=== PATIENT | female | born 2005 | race Caucasian/White ===

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

== ENCOUNTER 2023-05-11 09:50 | Emergency (ER) | payer SELFPAY ==
--- NOTE | ~2023-05-11 | XR_ITS ---
EXAMINATION: XR chest 2V DATE: 05/11/2023 10:56 INDICATION: Cough. Sore throat. TECHNIQUE: Frontal and lateral views of the chest were obtained. COMPARISON: None. FINDINGS: There is no pneumonia, pleural effusion, or pneumothorax. The heart size is normal. IMPRESSION: 1. No acute cardiopulmonary disease. Reviewed, dictated and finalized at location A. PER OPERATOR
[2023-05-11 09:59] VITALS: BP 140/78; PULSE 80; RESP 16; TEMP 36.6; O2SAT 100
[2023-05-11 11:19] LABS: Strep Group A RT-PCR NOT DETECTED (Negative)
[2023-05-11 11:31] LABS: Influenza A QL RT-PCR Negative (Negative); Influenza B QL RT-PCR Negative (Negative); RSV RNA, RT-PCR Positive (Negative); SARS-CoV-2 RNA PCR Negative (Negative)
--- NOTE | 2023-05-11 11:43 | ED.GENADULT ---
HPI - General Adult General Chief complaint: Upper Respiratory Infection Stated complaint: SORE THROAT, URI Time Seen by Provider: 05/11/23 10:06 History of Present Illness HPI narrative: Patient is a 17-year-old female who presents ER with sore throat and sinus congestion. Ongoing for 3 days. Associated with fever. Has been exposed to sick individuals at school. No chest pain or chest pressure. She does have persistent cough. No alleviating factors. Related Data Allergies Allergy/AdvReac Type Severity Reaction Status Date / Time banana Allergy Swelling Verified 05/11/23 10:00 of Lip/Tongue/Throat egg Allergy Swelling Verified 05/11/23 10:00 of Lip/Tongue/Throat milk Allergy Swelling Verified 05/11/23 10:00 of Lip/Tongue/Throat Review of Systems Constitutional: Constitutional: Reports chills, Reports fatigue and Reports fever(s) ENT: Reports nasal congestion and Reports sore throat Cardiovascular: Cardiovascular: Reports no additional cardiovascular complaints Respiratory: Respiratory: Reports cough, Denies dyspnea and Denies wheezing PMFSH Past Medical History Medical History (Updated 05/11/23 @ 17:53 by Gio Garcia MD) Healthy female adult Surgical History Surgical History (Updated 05/11/23 @ 17:53 by Gio Garcia MD) No history of previous surgery Social History Social History Gender identity (if verbalized by the patient): Female Exam Narrative: GENERAL: Well-appearing, well-nourished, and in no acute distress. HEAD: Normocephalic, atraumatic. ENT: Mucous membranes moist. Mild pharyngeal erythema without tonsillar hypertrophy or exudate. NECK: Supple. CHEST: Clear to auscultation. No respiratory distress. HEART: Regular rate and rhythm. Normal peripheral pulses. EXTREMITIES: Normal range of motion. No edema. NEURO: Alert and oriented x3. PSYCH: Normal mood and affect. Course Course Emergency Course: Patient diagnosed with RSV. Educated on treatment plan. Discharge home. Vital Signs Vital signs: Vital Signs Temperature 98 F 05/11/23 09:59 Pulse Rate 80 05/11/23 09:59 Respiratory Rate 16 05/11/23 09:59 Blood Pressure 140/78 05/11/23 09:59 Pulse Oximetry 100 05/11/23 09:59 Temperature 98 F 05/11/23 09:59 Pulse Rate 80 05/11/23 09:59 Respiratory Rate 16 05/11/23 09:59 Blood Pressure 140/78 05/11/23 09:59 Pulse Oximetry 100 05/11/23 09:59 Medical Decision Making Vital Signs Vital Signs: Vital Signs Temperature 98 F 05/11/23 09:59 Pulse Rate 80 05/11/23 09:59 Respiratory Rate 16 05/11/23 09:59 Blood Pressure 140/78 05/11/23 09:59 Pulse Oximetry 100 05/11/23 09:59 Temperature 98 F 05/11/23 09:59 Pulse Rate 80 05/11/23 09:59 Respiratory Rate 16 05/11/23 09:59 Blood Pressure 140/78 05/11/23 09:59 Pulse Oximetry 100 05/11/23 09:59 Lab Data Labs: Lab Results 05/11/23 05/11/23 Range/Units 10:50 10:51 Influenza A (RT-PCR) Negative (Negative) Influenza B (RT-PCR) Negative (Negative) RSV (RT-PCR) Positive A (Negative) SARS-CoV-2 RNA (RT-PCR) Negative (Negative) Group A Strep (PCR) Not detected (Negative) Discharge Plan Discharge Clinical Impression: Respiratory syncytial virus (RSV) Patient Disposition: Home, Self-Care Condition: Stable Instructions: Viral Syndrome (ED) Additional Instructions: Return the ER if you have fever over 100.4 ?F, you cannot keep down food or water, you lose consciousness, you have additional concerns. Prescriptions: No Action azithromycin 500 mg tablet 500 mg PO DAILY 5 Days Qty: 5 0RF Follow-up/Referrals: Dick Goodrich MD [Physician] - 1 Week PHYSICIAN,MECHANICAL LABORATORY TECHNICIAN [Primary Care Provider] -
== END 2023-05-11 11:50 | disposition home or self-care (01) ==
PROVIDERS: Emergency Provider Emergency Medicine
DX: J22 Unspecified acute lower respiratory infection (principal); B97.4 Respiratory syncytial virus as the cause of diseases classified elsewhere; Z20.822 Contact with and (suspected) exposure to COVID-19
CPT/HCPCS: 71046; 87637; 87651; 99283

== ENCOUNTER 2024-04-28 10:20 | Emergency (ER) | payer OTHER, SELFPAY ==
--- NOTE | ~2024-04-28 | XR_ITS ---
EXAMINATION: XR chest 2V DATE: 04/28/2024 14:17 INDICATION: Chest pain. TECHNIQUE: Frontal and lateral views of the chest were obtained. COMPARISON: Chest 2 views 05/11/2023 FINDINGS: There is no pneumonia, pleural effusion, or pneumothorax. The heart size is normal. IMPRESSION: 1. No acute cardiopulmonary disease. Reviewed, dictated and finalized at location B.
--- NOTE | 2024-04-28 10:24 | ECG_ITS ---
Test Date: 2024-04-28 10:54:07 Measurements Intervals [place] Rate: 71 P: 55 ID: 130 QRS: 77 QRSD: 93 T: 56 QT: 373 QTc: 406 Interpretive Statements SINUS RHYTHM WITH SINUS ARRHYTHMIA No previous ECG available for comparison Electronically Signed On 04-28-2024 11:56:50 CDT by Michael Akers M.D.
[2024-04-28 10:54] VITALS: BP 122/70; PULSE 92; RESP 16; TEMP 36.8; O2SAT 100
--- NOTE | 2024-04-28 12:21 | ED.CHESTPAIN ---
HPI - Chest Pain General Chief Complaint: Chest Pain <Jessi Dean PA-C - Last Filed: 04/29/24 11:09> Stated Complaint: INT CHEST PAIN X2D <Jessi Dean PA-C - Last Filed: 04/29/24 11:09> Time Seen by Provider: 04/28/24 12:21 <Jessi Dean PA-C - Last Filed: 04/29/24 11:09> Focused HPI: This is a 18 year old female that presents to the ER for chest pain. Worse with breathing and movement. She has not taken anything for pain. Pain started yesterday. No known injuries. Reports some shortness of breath. No recent travel or surgery. No exogenous estrogen use. Denies fever, cough. GENERAL: Well-appearing, well-nourished, and in no acute distress. HEAD: Normocephalic, atraumatic. CHEST: Clear to auscultation. ?No respiratory distress. HEART: Regular rate and rhythm.? NEURO: ?Alert and oriented x3. Patient screened in triage and initial orders placed.? ?Additional care and disposition to be based upon?diagnostic testing and treatment. <Jessi Dean PA-C - Last Filed: 04/29/24 11:09> History of Present Illness HPI narrative: I agree with the above HPI <Stanley Bennett MD - Last Filed: 04/28/24 18:39> Related Data Allergies/Adverse Reactions: Allergies Allergy/AdvReac Type Severity Reaction Status Date / Time banana Allergy Swelling Verified 05/11/23 10:00 of Lip/Tongue/Throat egg Allergy Swelling Verified 05/11/23 10:00 of Lip/Tongue/Throat milk Allergy Swelling Verified 05/11/23 10:00 of Lip/Tongue/Throat <Jessi Dean PA-C - Last Filed: 04/29/24 11:09> Review of Systems Review of Systems: All systems reviewed & are unremarkable except as noted in HPI and below <Stanley Bennett MD - Last Filed: 04/28/24 18:39> PMFSH Past Medical History Medical History: Medical History (Updated 04/29/24 @ 11:09 by Jessi Dean PA-C) Healthy female adult <Jessi Dean PA-C - Last Filed: 04/29/24 11:09> Surgical History Surgical History: Surgical History (Updated 05/11/23 @ 17:53 by Gio Garcia MD) No history of previous surgery <Jessi Dean PA-C - Last Filed: 04/29/24 11:09> Social History Social History: Social History Gender identity (if verbalized by the patient): Female <Jessi Dean PA-C - Last Filed: 04/29/24 11:09> Exam Narrative: APPEARANCE: Well appearing, no pain, no distress, well-nourished. HEAD: normocephalic, atraumatic. EYES: PERRLA/EOMI, conjunctivae clear. NOSE: Normal no drainage EARS:TMS clear with good light reflex. THROAT: Pharynx clear, no exudate. NECK: Supple. No adenopathy, no masses. RESPIRATORY: Airway patent, respirations nonlabored. Clear to auscultation bilaterally, no rales, rhonchi, wheezing. CARDIOVASCULAR: Regular rate and rhythm without murmurs rubs or gallops. ABDOMINAL: Soft, nontender, nondistended, normal bowel sounds MUSCULOSKELETAL: Reproducible chest wall tenderness to palpation NEURO: Alert. Cranial nerves II through XII intact. Good gait. Good coordination SKIN: Warm, dry. Normal Color PSYCHIATRIC: Normal affect/mood. <Stanley Bennett MD - Last Filed: 04/28/24 18:39> Course Vital Signs Vital signs: Vital Signs Temperature 98.3 F 04/28/24 10:54 Pulse Rate 92 04/28/24 10:54 Respiratory Rate 16 04/28/24 10:54 Blood Pressure 122/70 04/28/24 10:54 Pulse Oximetry 100 04/28/24 10:54 Temperature 97.9 F 04/28/24 14:28 Pulse Rate 88 04/28/24 16:07 Respiratory Rate 18 04/28/24 16:07 Blood Pressure 130/86 04/28/24 16:07 Pulse Oximetry 99 04/28/24 16:07 <Jessi Dean PA-C - Last Filed: 04/29/24 11:09> Vital Signs Temperature 98.3 F 04/28/24 10:54 Pulse Rate 92 04/28/24 10:54 Respiratory Rate 16 04/28/24 10:54 Blood Pressure 122/70 04/28/24 10:54 Pulse Oximetry 100 04/28/24 10:54 Temperature 97.9 F 04/28/24 14:28 Pulse Rate 88 04/28/24 16:07 Respiratory Rate 18 04/28/24 16:07 Blood Pressure 130/86 04/28/24 16:07 Pulse Oximetry 99 04/28/24 16:07 <Stanley Bennett MD - Last Filed: 04/28/24 18:39> MDM - Chest Pain MDM Narrative Medical decision making narrative: 18-year-old female presented emergency department for evaluation for a pleuritic chest pain. Patient is afebrile with no leukocytosis and hemoglobin of 12.7. Patient has an INR of 1.1. Patient's D-dimer negative. Patient has no acute abnormalities on her CMP patient's troponin was negative. Patient's urine preg was negative. Patient's chest x-ray was negative. Patient was updated results of the workup. Patient reports that the Toradol did help to resolve her chest pain. Suspect pleurisy/costochondritis the etiology for symptoms. Low concern for pulmonary embolism or ACS. Patient was encouraged close follow-up with primary care physician. <Stanley Bennett MD - Last Filed: 04/28/24 18:39> Differential Diagnosis Differential diagnosis: Likely fracture of rib, pneumothorax, unstable angina pectoris, atypical chest pain, costochondritis, chest pain and biliary colic <Stanley Bennett MD - Last Filed: 04/28/24 18:39> Lab Data Attestation: I reviewed the patient's lab results. <Stanley Bennett MD - Last Filed: 04/28/24 18:39> Result diagrams: 04/28/24 12:35 04/28/24 12:35 <Jessi Dean PA-C - Last Filed: 04/29/24 11:09> Labs: Lab Results 04/28/24 04/28/24 Range/Units 12:35 15:29 WBC 6.4 (4.5-10.0) K/mm3 RBC 4.14 L (4.2-5.4) M/mm3 Hgb 12.7 (12.0-15.0) g/dL Hct 37.3 (37.0-47.0) % MCV 90.1 (80-100) fl MCH 30.7 (26-34) pg MCHC 34.0 (32-36) g/dl RDW 11.9 (11.5-14.5) % Plt Count 230 (150-375) k/mm3 MPV 10.7 H (7.4-10.4) fl Immature Gran % (Auto) 0.2 (0-0.5) % Neut % (Auto) 55.7 (45.5-73.1) % Lymph % (Auto) 37.0 (18.3-44.2) % [place] % (Auto) 6.1 (2.6-8.5) % Eos % (Auto) 0.5 (0-4.4) % Baso % (Auto) 0.5 (0.2-1.2) % Lymph # (Auto) 2.37 (0.9-3.2) K/mm3 [place] # (Auto) 0.4 (0.1-0.6) K/mm3 Eos # (Auto) 0.0 (0-0.3) K/mm3 Baso # (Auto) 0.0 (0.0-0.1) K/mm3 Abs Immat Gran (auto) 0.01 (0.00-0.031) K/mm3 Absolute Neuts (auto) 3.6 (1.3-6.7) K/mm3 Absolute Nucleated RBC 0.000 (0.0-0.012) K/mm3 Nucleated RBC % 0.0 (0.0-0.2) % PT 14.5 (11.1-14.7) Seconds INR 1.1 APTT 29.4 (22.3-36.8) Seconds D-Dimer < 0.27 (<0.48) ug/mL Sodium 139 (137-145) mmol/L Potassium 4.2 (3.4-5.0) mmol/L Chloride 104 (98-107) mmol/L Carbon Dioxide 27 (22-30) mmol/L Anion Gap 8 (4-12) mmol/L BUN 8 (7-17) mg/dL Creatinine 0.70 (0.7-1.0) mg/dL Estim Creat Clear Calc 103 ml/min Estimated GFR > 60 (59 - ) Glucose 94 (65-110) mg/dL Calcium 9.3 (8.4-10.2) mg/dL Total Bilirubin 0.8 (0.2-1.3) mg/dL AST 24 (14-36) U/L ALT 18 (6-35) U/L Alkaline Phosphatase 60 (38-126) U/L Troponin I < 0.012 (0.000-0.034) ng/mL Total Protein 8.0 (6.3-8.2) g/dL Albumin 4.5 (3.5-5.1) g/dL Lipase 45 (23-300) U/L POC Urine HCG, Qual Negative (Negative) <Jessi Dean PA-C - Last Filed: 04/29/24 11:09> Lab Results 04/28/24 04/28/24 Range/Units 12:35 15:29 WBC 6.4 (4.5-10.0) K/mm3 RBC 4.14 L (4.2-5.4) M/mm3 Hgb 12.7 (12.0-15.0) g/dL Hct 37.3 (37.0-47.0) % MCV 90.1 (80-100) fl MCH 30.7 (26-34) pg MCHC 34.0 (32-36) g/dl RDW 11.9 (11.5-14.5) % Plt Count 230 (150-375) k/mm3 MPV 10.7 H (7.4-10.4) fl Immature Gran % (Auto) 0.2 (0-0.5) % Neut % (Auto) 55.7 (45.5-73.1) % Lymph % (Auto) 37.0 (18.3-44.2) % [place] % (Auto) 6.1 (2.6-8.5) % Eos % (Auto) 0.5 (0-4.4) % Baso % (Auto) 0.5 (0.2-1.2) % Lymph # (Auto) 2.37 (0.9-3.2) K/mm3 [place] # (Auto) 0.4 (0.1-0.6) K/mm3 Eos # (Auto) 0.0 (0-0.3) K/mm3 Baso # (Auto) 0.0 (0.0-0.1) K/mm3 Abs Immat Gran (auto) 0.01 (0.00-0.031) K/mm3 Absolute Neuts (auto) 3.6 (1.3-6.7) K/mm3 Absolute Nucleated RBC 0.000 (0.0-0.012) K/mm3 Nucleated RBC % 0.0 (0.0-0.2) % PT 14.5 (11.1-14.7) Seconds INR 1.1 APTT 29.4 (22.3-36.8) Seconds D-Dimer < 0.27 (<0.48) ug/mL Sodium 139 (137-145) mmol/L Potassium 4.2 (3.4-5.0) mmol/L Chloride 104 (98-107) mmol/L Carbon Dioxide 27 (22-30) mmol/L Anion Gap 8 (4-12) mmol/L BUN 8 (7-17) mg/dL Creatinine 0.70 (0.7-1.0) mg/dL Estim Creat Clear Calc 103 ml/min Estimated GFR > 60 (59 - ) Glucose 94 (65-110) mg/dL Calcium 9.3 (8.4-10.2) mg/dL Total Bilirubin 0.8 (0.2-1.3) mg/dL AST 24 (14-36) U/L ALT 18 (6-35) U/L Alkaline Phosphatase 60 (38-126) U/L Troponin I < 0.012 (0.000-0.034) ng/mL Total Protein 8.0 (6.3-8.2) g/dL Albumin 4.5 (3.5-5.1) g/dL Lipase 45 (23-300) U/L POC Urine HCG, Qual Negative (Negative) <Stanley Bennett MD - Last Filed: 04/28/24 18:39> Imaging Data Radiologist's impression: Impressions Chest X-Ray 04/28/24 14:17 IMPRESSION: 1. No acute cardiopulmonary disease. <Stanley Bennett MD - Last Filed: 04/28/24 18:39> ECG Data EKG #1: EKG Interpretation: normal rate, sinus rhythm, no ectopy, non-specific ST changes, normal QRS, normal QT and NL axis <Stanley Bennett MD - Last Filed: 04/28/24 18:39> Critical Care Time Critical Care Time Critical Care Time: No <Jessi Dean PA-C - Last Filed: 04/29/24 11:09> Discharge Plan Discharge Clinical Impression: Chest pain <Jessi Dean PA-C - Last Filed: 04/29/24 11:09> Patient Disposition: Home, Self-Care <Jessi Dean PA-C - Last Filed: 04/29/24 11:09> Condition: Stable <Jessi Dean PA-C - Last Filed: 04/29/24 11:09> Instructions: Antibiotic Form, Chest Pain (ED), Pleurisy (ED) <Jessi Dean PA-C - Last Filed: 04/29/24 11:09> Additional Instructions: Scheduled ibuprofen for pain control. Have close follow-up with your primary care physician. If you have any worsening symptoms then please call or return to the emergency department. <Jessi Dean PA-C - Last Filed: 04/29/24 11:09> Prescriptions: No Action azithromycin 500 mg tablet 500 mg PO DAILY 5 Days Qty: 5 0RF <Jessi Dean PA-C - Last Filed: 04/29/24 11:09> Follow-up/Referrals: PHYSICIAN,TEENAGE BABYSITTER [Non-Staff] - <Jessi Dean PA-C - Last Filed: 04/29/24 11:09> Quality HEART score for chest pain patients History: slightly suspicious <Stanley Bennett MD - Last Filed: 04/28/24 18:39> ECG: normal <Stanley Bennett MD - Last Filed: 04/28/24 18:39> Age: < or = to 45 years <Stanley Bennett MD - Last Filed: 04/28/24 18:39> Risk factors: no risk factors known <Stanley Bennett MD - Last Filed: 04/28/24 18:39> Troponin: < or = to 1x normal limit <Stanley Bennett MD - Last Filed: 04/28/24 18:39> Heart score: 0 <Jessi Dean PA-C - Last Filed: 04/29/24 11:09> 0 <Stanley Bennett MD - Last Filed: 04/28/24 18:39>
[2024-04-28 12:52] LABS: Basophils Percent Auto 0.5 % (0.2-1.2); Eosinophils Percent Auto 0.5 % (0-4.4); Hematocrit 37.3 % (37.0-47.0); Hemoglobin 12.7 g/dL (12.0-15.0); Immature Granulocyte Absolute 0.01 K/mm3 (0.00-0.031); Immature Granulocyte Percent A 0.2 % (0-0.5); Lymphocytes Absolute Auto 2.37 K/mm3 (0.9-3.2); Mean Corpuscular Hemoglobin 30.7 pg (26-34); Mean Corpuscular Volume 90.1 fl (80-100); Mean Platelet Volume 10.7 fl (7.4-10.4); Monocytes Absolute Auto 0.4 K/mm3 (0.1-0.6); Monocytes Percent Auto 6.1 % (2.6-8.5); Neutrophils Absolute Auto 3.6 K/mm3 (1.3-6.7); Neutrophils Percent Auto 55.7 % (45.5-73.1); Platelet Count Result 230 k/mm3 (150-375); Red Blood Count 4.14 M/mm3 (4.2-5.4); Red Cell Distribution Width 11.9 % (11.5-14.5); White Blood Count 6.4 K/mm3 (4.5-10.0)
[2024-04-28 13:03] LABS: Alanine Aminotransferase 18 U/L (6-35); Albumin Level 4.5 g/dL (3.5-5.1); Alkaline Phosphatase 60 U/L (38-126); Anion Gap 8 mmol/L (4-12); Aspartate Amino Transferase 24 U/L (14-36); Bilirubin,Total 0.8 mg/dL (0.2-1.3); Blood Urea Nitrogen 8 mg/dL (7-17); Calcium 9.3 mg/dL (8.4-10.2); Carbon Dioxide 27 mmol/L (22-30); Chloride 104 mmol/L (98-107); Estimated CRCL calculation 103 ml/min; Estimated Glomerular Filt Rate > 60; Glucose 94 mg/dL (65-110); Lipase 45 U/L (23-300); Potassium 4.2 mmol/L (3.4-5.0); Sodium 139 mmol/L (137-145)
[2024-04-28 13:07] LABS: Partial Thromboplastin Time 29.4 Seconds (22.3-36.8)
[2024-04-28 13:09] LABS: INR 1.1; Prothrombin Time 14.5 Seconds (11.1-14.7)
[2024-04-28 13:14] LABS: Troponin I < 0.012 ng/mL (0.000-0.034)
[2024-04-28 14:28] VITALS: BP 124/70; PULSE 76; RESP 15; TEMP 36.6; O2SAT 99
[2024-04-28] MEDS: KETOROLAC 30 MG/ML VIAL (*BKC) IM (15:29)
[2024-04-28 15:31] LABS: BEDSIDEPREGUCG Negative (Negative)
[2024-04-28 16:07] VITALS: BP 130/86; PULSE 88; RESP 18; O2SAT 99
[2024-04-28 16:19] LABS: D Dimer < 0.27 ug/mL (<0.48)
== END 2024-04-28 16:50 | disposition home or self-care (01) ==
PROVIDERS: Physician Assistant; Emergency Provider Emergency Medicine
DX: R07.9 Chest pain, unspecified (principal)
CPT/HCPCS: 36415; 71046; 80053; 81025; 83690; 84484; 85025; 85380; 85610; 85730; 93005; 96372; 99284; J1885

== ENCOUNTER 2024-12-16 15:58 | Emergency (ER) | payer SELFPAY ==
[2024-12-16 16:15] VITALS: BP 105/83; PULSE 98; RESP 20; TEMP 36.4; O2SAT 98
--- NOTE | 2024-12-16 17:33 | ED_ITS ---
HPI - Dental/Oral General Chief complaint: Dental/Oral Stated complaint: jaw swelling, tooth Time Seen by Provider: 12/16/24 16:23 Source: patient Mode of arrival: ambulatory Limitations: no limitations History of Present Illness HPI Narrative: This is a 19 year old female that presents to the ER for toothache. Ongoing over the last week. Denies fevers. MD Complaint: tooth pain Location: Tooth # (1) Related Data Allergies Allergy/AdvReac Type Severity Reaction Status Date / Time banana Allergy Swelling Verified 12/16/24 16:17 of Lip/Tongue/Throat egg Allergy Swelling Verified 12/16/24 16:17 of Lip/Tongue/Throat milk Allergy Swelling Verified 12/16/24 16:17 of Lip/Tongue/Throat Review of Systems Review of Systems: CONSTITUTIONAL: Denies fever, ENT: Reports dentalgia All systems reviewed & are unremarkable except as noted in HPI and below PMFSH Past Medical History Medical History (Updated 12/16/24 @ 17:34 by Jessi Dean PA-C) Healthy female adult Surgical History Surgical History (Updated 05/11/23 @ 17:53 by Gio Garcia MD) No history of previous surgery Social History Social History Gender identity (if verbalized by the patient): Female Exam Narrative: GENERAL: Well-appearing, well-nourished, and in no acute distress. HEAD: Normocephalic, atraumatic. EYES: EOMI. ENT: Nares clear, no rhinorrhea or epistaxis. Mucous membranes moist. Oropharynx without tonsillar hypertrophy exudate or other lesions. Tooth #1 tender to palpation without surrounding erythema or fluctuance to suggest abscess NECK: Supple. No adenopathy or masses. CHEST: Clear to auscultation. No respiratory distress. No wheezes rales or rhonchi HEART: Regular rate and rhythm. No murmur heard. Normal peripheral pulses. EXTREMITIES: Normal range of motion. No edema. SKIN: Warm, dry, no rash. NEURO: No focal deficits. Alert and oriented x3. PSYCH: Normal mood and affect Course Vital Signs Vital signs: Vital Signs Temperature 97.6 F 12/16/24 16:15 Pulse Rate 98 12/16/24 16:15 Respiratory Rate 20 12/16/24 16:15 Blood Pressure 105/83 12/16/24 16:15 Pulse Oximetry 98 12/16/24 16:15 Oxygen Delivery Room Air 12/16/24 16:15 Temperature 97.6 F 12/16/24 16:15 Pulse Rate 98 12/16/24 16:15 Respiratory Rate 20 12/16/24 16:15 Blood Pressure 105/83 12/16/24 16:15 Pulse Oximetry 98 12/16/24 16:15 Oxygen Delivery Room Air 12/16/24 16:15 MDM - Dental/Oral MDM Narrative Medical decision making narrative: Patient presents the emergency department for toothache. She is afebrile and nontoxic appearing. No evidence for abscess on exam. Will be started on oral antibiotics. Instructed to follow-up with a dentist. She was given warnings to return to the ER Differential Diagnosis Differential diagnosis: Likely dental caries, toothache and dental abscess Critical Care Time Critical Care Time Critical Care Time: No Discharge Plan Discharge Clinical Impression: Toothache Patient Disposition: Home Condition: Stable Instructions: Antibiotic Form, Toothache (ED) Additional Instructions: Return to the Emergency Department if you experience fever >101, increasing swelling and redness of your tooth, or any other symptoms that are concerning to you Take antibiotic as prescribed. Tylenol or Ibuprofen as needed for pain. Follow up with your dentist Patient Language: [place] Prescriptions: New amoxicillin-pot clavulanate 875-125 mg tablet 1 tablet PO Q12H 7 Days Qty: 14 0RF No Action azithromycin 500 mg tablet 500 mg PO DAILY 5 Days Qty: 5 0RF Follow-up/Referrals: UNKNOWN,DOCTOR [Primary Care Provider] -
[2024-12-16] MEDS: KETOROLAC 30 MG/ML VIAL (*BKC) IM (17:46)
[2024-12-16] MEDS: AMOXICILLIN/CLAVULANATE K 875-125 MG TAB 1 TABLET PO (17:46)
[2024-12-16] MEDS: HYDROcodone/acetaminophen (*CRX) 5-325 MG TABLET 1 TAB PO (17:47)
== END 2024-12-16 18:10 | disposition home or self-care (01) ==
PROVIDERS: Emergency Provider Physician Assistant
DX: K08.89 Other specified disorders of teeth and supporting structures (principal)
CPT/HCPCS: 96372; 99283; A9270; J1885

== ENCOUNTER 2024-12-24 01:37 | Emergency (ER) | payer SELFPAY ==
[2024-12-24 01:40] VITALS: BP 129/91; PULSE 64; RESP 18; TEMP 36.4; O2SAT 100
--- NOTE | 2024-12-24 02:05 | ED.DENTAL ---
HPI - Dental/Oral General Chief complaint: Dental/Oral Stated complaint: Right sided mouth/dental pain Time Seen by Provider: 12/24/24 01:46 Source: patient and old records reviewed Mode of arrival: ambulatory Limitations: no limitations History of Present Illness HPI Narrative: Patient is a 19-year-old female who presents the ED with report of dental pain. Patient reports having pain throughout right upper molar, tooth 1, for the past few weeks. Was seen in the ED here last week, prescribed Augmentin. Patient reports pain has continued to worsen. She feels as though the right side of her face is swollen. Denies difficulty breathing or swallowing. Denies fevers. States she is not able to get in to see her dentist until April. Related Data Allergies Allergy/AdvReac Type Severity Reaction Status Date / Time banana Allergy Swelling Verified 12/24/24 01:43 of Lip/Tongue/Throat egg Allergy Swelling Verified 12/24/24 01:43 of Lip/Tongue/Throat milk Allergy Swelling Verified 12/24/24 01:43 of Lip/Tongue/Throat Review of Systems Review of Systems: All systems reviewed & are unremarkable except as noted in HPI. All systems reviewed & are unremarkable except as noted in HPI and below PMFSH Past Medical History Medical History Healthy female adult Surgical History Surgical History No history of previous surgery Social History Social History Gender identity (if verbalized by the patient): Female Exam Narrative: GENERAL: Well appearing, well-nourished, non-toxic, in no acute distress. HEAD: Normocephalic, atraumatic. ENT: Dental jonny to tooth 1. Tenderness along right upper outer gumline. No significant gum erythema or inflammation. No focal fluctuance or abscess. Tolerating secretions. No stridor or trismus. RESPIRATORY: Airway patent, respirations nonlabored. No stridor or distress. CARDIOVASCULAR: Regular rate and rhythm. MUSCULOSKELETAL: Moves all extremities. No gross deformities. SKIN: Warm, dry, normal color. NEURO: A&O X3. Speech clear. PSYCHIATRIC: Appropriate mood and affect. Normal interaction. Course Vital Signs Vital signs: Vital Signs Temperature 97.6 F 12/24/24 01:40 Pulse Rate 64 12/24/24 01:40 Respiratory Rate 18 12/24/24 01:40 Blood Pressure 129/91 H 12/24/24 01:40 Pulse Oximetry 100 12/24/24 01:40 Oxygen Delivery Room Air 12/24/24 01:40 Temperature 97.6 F 12/24/24 01:40 Pulse Rate 64 12/24/24 01:40 Respiratory Rate 18 12/24/24 01:40 Blood Pressure 129/91 H 12/24/24 01:40 Pulse Oximetry 100 12/24/24 01:40 Oxygen Delivery Room Air 12/24/24 01:40 MDM - Dental/Oral MDM Narrative Medical decision making narrative: Patient's pain is consistent with dental caries. There are no focal signs of space-occupying abscess. The patient is controlling secretions well without signs of airway compromise. Patient is felt reasonable for outpatient follow-up with dental evaluation. Will switch antibiotics to clindamycin. Given dose of [place] here. Advised to continue Tylenol/ibuprofen as needed for pain. Discussed return precautions. Discharged in stable condition. Medical Records Attestation: I reviewed the patient's medical records. Discharge Plan Discharge Clinical Impression: Toothache, Dental caries Patient Disposition: Home Condition: Stable Instructions: Antibiotic Form, Toothache (ED) Additional Instructions: Take new antibiotics as prescribed. Utilize mouthwash twice daily as needed. Stay well hydrated. Continue Tylenol/ibuprofen around the clock as needed for pain. Follow-up with dentist for further evaluation. Return to the ED for new or worsening concerns. Patient Language: Ivorian Prescriptions: New clindamycin HCl [Cleocin HCl] 150 mg capsule 300 mg PO TID 7 Days Qty: 42 0RF chlorhexidine gluconate 0.12 % mouthwash 15 ml buccal BID Qty: 118 0RF No Action amoxicillin-pot clavulanate 875-125 mg tablet 1 tablet PO Q12H 7 Days Qty: 14 0RF azithromycin 500 mg tablet 500 mg PO DAILY 5 Days Qty: 5 0RF Follow-up/Referrals: UNKNOWN,DOCTOR [Primary Care Provider] - Time of Disposition: 02:16
[2024-12-24 02:32] VITALS: BP 113/93; PULSE 73; RESP 16; TEMP 36.6; O2SAT 98
[2024-12-24] MEDS: HYDROcodone/acetaminophen (*CRX) 5-325 MG TABLET 1 TAB PO (02:32)
[2024-12-24 02:42] VITALS: BP 113/93; PULSE 65; RESP 18; O2SAT 97
== END 2024-12-24 02:41 | disposition home or self-care (01) ==
PROVIDERS: Emergency Provider Physician Assistant
DX: K02.9 Dental caries, unspecified (principal)
CPT/HCPCS: 99283; A9270

== ENCOUNTER 2025-04-30 10:00 | Emergency (ER) | payer SELFPAY ==
--- NOTE | ~2025-04-30 | US_ITS ---
EXAMINATION: US transvaginal, 04/30/2025 13:25 COMMUNITY EDUCATOR HISTORY: bleeding Comparison: None Technique: Hou-scale and color Doppler images were obtained. Findings: Uterus: Uterus anteverted measuring 6.8 x 3.2 x 3.3 cm x 3.3 x 2 x 2 0.3 cm, no adnexal mass, normal flow. . Right Ovary:Unremarkable. No adnexal mass. Normal flow. Left Ovary: Left ovary 3.2 x 1.9 x 1.4 cm, no adnexal mass, normal flow. Free Fluid: Minimal free fluid. Impression: No acute abnormality. Reviewed, dictated and finalized at location P. UN[facility] EDUCATOR Impression: No acute abnormality.
--- OUTSIDE RECORDS SUMMARY | 2025-04-30 10:04 | XMS_ITS | Clinical Summary ---
Author Organization [facility] Address [address] [address] Phone Care Team Providers Care Sheriff Name Role Phone Juan M Paz MD Primary Care Provider [phone] Allergies No known active allergies Medications No known medications Active Problems Problem Noted Date Diagnosed Date Annual physical exam 12/24/2022 Immunizations Immunization Administration Dates Next Due DTaP 5 Pertussis 09/20/2008,12/24/2005, 4,03/28/2004 HPV9 03/15/2019 Hep A, Pediatric 03/15/2019 Hep B, Adolescent or Pediatric 11/04/2004,2003,03/28/2004 IPV 09/20/2008,11/04/2004,06/18/2004 ,03/28/2004 Influenza, Unspecified 03/29/2022 MMR 09/20/2008,03/06/2005 Meningococcal MCV4P (Menactra) 04/15/2021,2018 Tdap 03/15/2019 Varicella 09/20/2008,03/06/2005 Family History Medical History Relation Name Comments No Known Problems Brother 1 No Known Problems Brother 2 No Known Problems Brother 3 No Known Problems Brother 4 No Known Problems Father Arthritis Mother No Known Problems Sister 1 No Known Problems Sister 2 Relation Name Status Comments Brother 1 Alive Brother 2 Alive Brother 3 Alive Brother 4 Alive Father Alive Mother Alive Sister 1 Alive Sister 2 Alive Social History Tobacco Use Types Packs/Day Years Used Date Smoking Tobacco: Never Smokeless Tobacco: Never Tobacco Cessation:Counseling Given: Not Answered PHQ-2 Answer Date Recorded PHQ-2 Total Score (If total score is 3 or more points, staff should administer the PHQ-9) 0 12/24/2022 Personal Safety Answer Date Recorded Getting School Help Needed Not on file 09/12 Comments Unknown Sex and Gender Information Value Date Recorded Sex Assigned at Not on file Legal Sex Female 1:08 PM CDT Gender Identity Not on file Sexual Orientation Not on file Last Filed Vital Signs Vital Sign Reading Time Taken Comments Blood Pressure 100/60 12/24/2022 3:08 PM CDT Pulse 89 12/24/2022 3:08 PM CDT Temperature 36 C (96.8 F) 12/24/2022 3:08 PM CDT Respiratory Rate 16 12/24/2022 3:08 PM CDT Oxygen Saturation 99% 12/24/2022 3:08 PM CDT Inhaled Oxygen Concentration - - Weight 75.3 kg (166 lb) 12/24/2022 3:08 PM CDT Height 165.1 cm (5' 5) 12/24/2022 3:08 PM CDT Body Mass Index 27.62 12/24/2022 3:08 PM CDT Plan of Treatment Health Maintenance Due Date Last Done Comments Cervical Cancer Screening 2003 Hepatitis C Screening 2003 HPV Vaccines (2 - 3-dose series) 04/12/2019 03/15/2019 Meningococcal B Vaccine (1 of 2 - Standard) 2019 Depression Screening 12/25/2023 12/24/2022 Regular Well Visit/Exam 18-64 12/25/2023 12/24/2022 Covid-19 Vaccine (3 - season) 2025 04/29/2021, 04/08/2021 Influenza Vaccine (#1) 2025 03/29/2022 DTaP/Tdap/Td Vaccine (6 - Td or Tdap) 03/15/2029 03/15/2019, 09/20/2008, 12/24/2005, Additional history exists Hepatitis B Screening Completed 11/04/2004 , 06/18/2004, 03/28/2004 Varicella Vaccines Completed 09/20/2008, 03/06/2005 Meningococcal Vaccine Completed 04/15/2021, 019 Pneumococcal vaccine <65 Aged Out No longer eligible based on patient's age to complete this topic Insurance IDPA Care Teams Sheriff Relationship Specialty Start Date End Date Juan M Paz MD PCP - General Family Medicine 12/24/22
[2025-04-30 11:37] VITALS: BP 130/85; PULSE 84; RESP 18; TEMP 36.4; O2SAT 100
[2025-04-30 13:07] LABS: BEDSIDEPREGUCG Negative (Negative)
[2025-04-30 13:27] LABS: Hematocrit 37.5 % (37.0-47.0); Hemoglobin 12.6 g/dL (12.0-15.0); Immature Granulocyte Percent A 0.2 % (0-0.5); Lymphocytes Absolute Auto 2.23 K/mm3 (0.9-3.2); Mean Corpuscular HGB Conc 33.6 g/dl (32-36); Mean Corpuscular Hemoglobin 30.4 pg (26-34); Mean Corpuscular Volume 90.4 fl (80-100); Nucleated Red Blood Cells Absolute Auto 0.000 K/mm3 (0.0-0.012); Nucleated Red Blood Cells Perc 0.0 % (0.0-0.2); Platelet Count Result 249 k/mm3 (150-375); Red Blood Count 4.15 M/mm3 (4.2-5.4); White Blood Count 6.5 K/mm3 (4.5-10.0)
[2025-04-30 13:38] LABS: Alanine Aminotransferase 17 U/L (6-35); Albumin Level 4.4 g/dL (3.5-5.1); Alkaline Phosphatase 62 U/L (38-126); Anion Gap 6 mmol/L (4-12); Aspartate Amino Transferase 22 U/L (14-36); Bilirubin,Total 0.6 mg/dL (0.2-1.3); Blood Urea Nitrogen 10 mg/dL (7-17); Calcium 9.2 mg/dL (8.4-10.2); Carbon Dioxide 24 mmol/L (22-30); Chloride 108 mmol/L (98-107); Estimated CRCL calculation 111 ml/min; Estimated Glomerular Filt Rate > 60; Glucose 92 mg/dL (65-110); Potassium 4.6 mmol/L (3.4-5.0); Sodium 138 mmol/L (137-145); Total Protein 7.2 g/dL (6.3-8.2)
[2025-04-30 13:41] LABS: Add Urine Microscopic? YES; Appearance Urine Cloudy (Clear); Glucose Urine UA Negative (Negative); Leukocyte Esterase Ur 2+ LEU/UL (Negative); Need Manual Microscopic Reviewed; Nitrate Urine Positive (Negative); Non Pathogenic Casts 0-2; Specific Grav Ur 1.023 (1.001-1.035)
--- NOTE | 2025-04-30 14:36 | ED_ITS ---
HPI - General Adult General Chief complaint: Vaginal Bleeding Stated complaint: bilat flank pain, vag bleeding, Time Seen by Provider: 04/30/25 12:24 History of Present Illness HPI narrative: Patient is a 19-year-old female who presents ER with bilateral lower abdominal cramping. Ongoing for several weeks. She finished her menstrual. Week ago and then restarted today. She has been on a new control for last week. No urinary frequency urgency or dysuria. No chest pain or chest pressure. She is not on any blood thinning medications. Related Data Allergies Allergy/AdvReac Type Severity Reaction Status Date / Time banana Allergy Swelling Verified 04/30/25 11:41 of Lip/Tongue/Throat egg Allergy Swelling Verified 04/30/25 11:41 of Lip/Tongue/Throat milk Allergy Swelling Verified 04/30/25 11:41 of Lip/Tongue/Throat Review of Systems 2 Review of Systems: All systems reviewed & are unremarkable except as noted in HPI and below Constitutional: Constitutional: Reports no additional constitutional complaints ENT: Reports system reviewed and no additional complaints, except as documented Cardiovascular: Cardiovascular: Reports no additional cardiovascular complaints Respiratory: Respiratory: Reports no additional respiratory complaints Gastrointestinal: Gastrointestinal: Reports no additional gastrointestinal complaints Genitourinary: Genitourinary: Reports no additional female genitourinary complaints [facility] Past Medical History Medical History Healthy female adult Surgical History Surgical History No history of previous surgery Social History Social History Gender identity (if verbalized by the patient): Female Exam 2 Narrative: GENERAL: Well-appearing, well-nourished, and in no acute distress. HEAD: Normocephalic, atraumatic. ENT: Mucous membranes moist. CHEST: Clear to auscultation. No respiratory distress. HEART: Regular rate and rhythm. Normal peripheral pulses. ABDOMEN: Soft, nontender, nondistended. EXTREMITIES: Normal range of motion. No edema. SKIN: Warm, dry, no rash. NEURO: Alert and oriented x3. PSYCH: Normal mood and affect. Course Course Emergency Course: Patient resting comfortably. Informed of results. Will treat for UTI outpatient. Likely having breakthrough bleeding related to her new control. Vital Signs Vital signs: Vital Signs Temperature 97.6 F 04/30/25 11:37 Pulse Rate 84 04/30/25 11:37 Respiratory Rate 18 04/30/25 11:37 Blood Pressure 130/85 04/30/25 11:37 Pulse Oximetry 100 04/30/25 11:37 Oxygen Delivery Room Air 04/30/25 11:37 Temperature 97.6 F 04/30/25 11:37 Pulse Rate 84 04/30/25 11:37 Respiratory Rate 18 04/30/25 11:37 Blood Pressure 130/85 04/30/25 11:37 Pulse Oximetry 100 04/30/25 11:37 Oxygen Delivery Room Air 04/30/25 11:37 Medical Decision Making Differential Diagnosis Differential Diagnosis: , miscarriage, ruptured ovarian cyst, dysmenorrhea Vital Signs Vital Signs: Vital Signs Temperature 97.6 F 04/30/25 11:37 Pulse Rate 84 04/30/25 11:37 Respiratory Rate 18 04/30/25 11:37 Blood Pressure 130/85 04/30/25 11:37 Pulse Oximetry 100 04/30/25 11:37 Oxygen Delivery Room Air 04/30/25 11:37 Temperature 97.6 F 04/30/25 11:37 Pulse Rate 84 04/30/25 11:37 Respiratory Rate 18 04/30/25 11:37 Blood Pressure 130/85 04/30/25 11:37 Pulse Oximetry 100 04/30/25 11:37 Oxygen Delivery Room Air 04/30/25 11:37 Lab Data Lab results reviewed: Yes I reviewed the patient's lab results. 04/30/25 13:22 04/30/25 13:22 Labs: Lab Results 04/30/25 04/30/25 04/30/25 Range/Units 12:48 13:16 13:22 WBC 6.5 (4.5-10.0) K/mm3 RBC 4.15 L (4.2-5.4) M/mm3 Hgb 12.6 (12.0-15.0) g/dL Hct 37.5 (37.0-47.0) % MCV 90.4 (80-100) fl MCH 30.4 (26-34) pg MCHC 33.6 (32-36) g/dl RDW 12.2 (11.5-14.5) % Plt Count 249 (150-375) k/mm3 MPV 10.2 (7.4-10.4) fl Immature Gran % (Auto) 0.2 (0-0.5) % Neut % (Auto) 56.7 (45.5-73.1) % Lymph % (Auto) 34.6 (18.3-44.2) % [place] % (Auto) 7.1 (2.6-8.5) % Eos % (Auto) 1.1 (0-4.4) % Baso % (Auto) 0.3 (0.2-1.2) % Lymph # (Auto) 2.23 (0.9-3.2) K/mm3 [place] # (Auto) 0.5 (0.1-0.6) K/mm3 Eos # (Auto) 0.1 (0-0.3) K/mm3 Baso # (Auto) 0.0 (0.0-0.1) K/mm3 Abs Immat Gran (auto) 0.01 (0.00-0.031) K/mm3 Absolute Neuts (auto) 3.7 (1.3-6.7) K/mm3 Absolute Nucleated RBC 0.000 (0.0-0.012) K/mm3 Nucleated RBC % 0.0 (0.0-0.2) % Sodium 138 (137-145) mmol/L Potassium 4.6 (3.4-5.0) mmol/L Chloride 108 H (98-107) mmol/L Carbon Dioxide 24 (22-30) mmol/L Anion Gap 6 (4-12) mmol/L BUN 10 (7-17) mg/dL Creatinine 0.75 (0.7-1.0) mg/dL Estim Creat Clear Calc 111 ml/min Estimated GFR > 60 (59 - ) Glucose 92 (65-110) mg/dL Calcium 9.2 (8.4-10.2) mg/dL Total Bilirubin 0.6 (0.2-1.3) mg/dL AST 22 (14-36) U/L ALT 17 (6-35) U/L Alkaline Phosphatase 62 (38-126) U/L Total Protein 7.2 (6.3-8.2) g/dL Albumin 4.4 (3.5-5.1) g/dL Urine Color Yellow (Yellow) Urine Appearance Cloudy H (Clear) Urine pH 5.5 (5.0-9.0) Ur Specific [place] 1.023 (1.001-1.035) Urine Protein Negative (Negative) mg/dL Urine Glucose (UA) Negative (Negative) mg/dL Urine Ketones Negative (Negative) mg/dL Ur Blood (Man) 3+ H (Negative) Urine Nitrate Positive H (Negative) Urine Bilirubin Negative (Negative) Urine Urobilinogen 0.2 (<2.0) mg/dL Add Ur Microanalysis Reviewed Leukocyte Esterase Rfl 2+ H (Negative) ELVI/UL Urine RBC 11-20 H (0-2) /hpf Urine WBC 21-50 H (0-3) /hpf Ur Squamous Epith Cells Few (Few) /hpf Urine Bacteria 4+ H /hpf Urine Casts 0-2 POC Urine HCG, Qual Negative (Negative) Imaging Data Radiologist's impression: ITS Impressions Transvaginal US 04/30/25 14:09 Impression: No acute abnormality. Discharge Plan Discharge Clinical Impression: UTI (urinary tract infection), Breakthrough bleeding Patient Disposition: Home Condition: Stable Instructions: Abnormal (Dysfunctional) Uterine Bleeding (ED), Urinary Tract Infection in Women (ED) Additional Instructions: Return to the emergency department if you develop severe abdominal pain, severe nausea and vomiting to the point where you are unable to keep down fluids, if you develop chest pain or difficulty breathing, blood in your stool, dizziness or fainting, or if you develop any other new or concerning symptoms as these could be signs of more serious medical illness. Try to stay well hydrated. Patient Language: Barbadian Prescriptions: New cephalexin 500 mg capsule 500 mg PO Q12H Qty: 14 0RF No Action amoxicillin-pot clavulanate 875-125 mg tablet 1 tablet PO Q12H 7 Days Qty: 14 0RF azithromycin 500 mg tablet 500 mg PO DAILY 5 Days Qty: 5 0RF clindamycin HCl [Cleocin HCl] 150 mg capsule 300 mg PO TID 7 Days Qty: 42 0RF chlorhexidine gluconate 0.12 % mouthwash 15 ml buccal BID Qty: 118 0RF Follow-up/Referrals: PHYSICIAN,HEALTH POLICY MANAGER [Primary Care Provider, Internal Medicine] Sean Baxter MD [Physician, Family Practice] - 1 Week
[2025-04-30 14:50] VITALS: BP 130/82; PULSE 84; RESP 16; O2SAT 97
== END 2025-04-30 14:51 | disposition home or self-care (01) ==
PROVIDERS: Emergency Provider Emergency Medicine
DX: N39.0 Urinary tract infection, site not specified (principal); N93.9 Abnormal uterine and vaginal bleeding, unspecified
CPT/HCPCS: 36415; 76830; 80053; 81001; 81025; 85025; 87086; 87186; 99284